=== PATIENT | male | born 1990 | race African-American/Black ===

== ENCOUNTER 2018-03-02 18:43 | Emergency (ER) | payer MEDICAID, OTHER ==
[~2018-03-02] VITALS: Ht 195.6 cm; Wt 91.8 kg
[2018-03-02] MEDS ORDERED: LORazepam 2 mg/ml vial IV ONE (18:55)
[2018-03-02 21:06] LABS: BASOPHILS # (AUTO) 0.1 X10'3 (0-0.2); BASOPHILS % (AUTO) 1.3 % (0-1); EOSINOPHILS % (AUTO) 0.4 % (0-6); HEMATOCRIT 41.3 % (42.0-52.0); HEMOGLOBIN 13.8 g/dl (14.0-17.9); LYMPHOCYTES # (AUTO) 1.7 X10'3 (1.1-4.8); LYMPHOCYTES % (AUTO) 21.5 % (21-51); MEAN CORPUSCULAR HEMOGLOBIN 28.9 PG (27.0-31.0); MEAN CORPUSCULAR HGB CONC 33.3 % (33.0-36.5); MEAN CORPUSCULAR VOLUME 86.6 FL (78-98); MONOCYTES # (AUTO) 0.4 X10'3 (0-0.9); MONOCYTES % (AUTO) 5.4 % (2-12); NEUTROPHILS # (AUTO) 5.7 X10'3 (1.8-7.7); NEUTROPHILS % (AUTO) 71.4 % (42-75); PLATELET COUNT 234 X10'3 (140-440); RED BLOOD COUNT 4.77 X10'6 (4.70-6.10); RED CELL DISTRIBUTION WIDTH 14.8 % (11.5-14.5)
--- NOTE | 2018-03-02 21:13 | NUR ---
PT HAS A MIRROR IN HIS HAND, THINKS ITS A PHONE AND TALKING TO PRESIDENT EZ, MAKING PLANS TO PLAY BASEBALL TOMORROW INSTEAD OF GOLF.
[2018-03-02 21:20] LABS: ALANINE AMINOTRANSFERASE 27 U/L (12-78); ALBUMIN 3.9 G/DL (3.4-5.0); ALBUMIN/GLOBULIN RATIO 0.9 (1.1-1.5); ALKALINE PHOSPHATASE 75 IU/L (46-116); ANION GAP 14 (8-16); ASPARTATE AMINO TRANSFERASE 25 U/L (10-37); BILIRUBIN,TOTAL 0.4 MG/DL (0.1-1.0); BLOOD UREA NITROGEN 7 MG/DL (7-18); BUN/CREATININE RATIO 6.8 (5.4-32.0); CALCIUM 9.2 MG/DL (8.5-10.1); CHLORIDE 102 MMOL/L (99-107); CREATININE 1.03 MG/DL (0.60-1.10); GLUCOSE 114 MG/DL (70-104); POTASSIUM 3.6 MMOL/L (3.5-5.1); SODIUM 140 MMOL/L (135-145); TOTAL CARBON DIOXIDE 24.4 MMOL/L (24-32); TOTAL PROTEIN 8.4 G/DL (6.4-8.2); eGFR 85 ML/MIN
[2018-03-02 21:29] LABS: ETHANOL < 0.010 GM/DL (0.0-0.010)
[2018-03-02 21:33] LABS: ACETAMINOPHEN < 2.0 UG/ML (10-30)
--- NOTE | 2018-03-02 21:41 | NUR ---
CALLED FOR TELEPSYCH CONSULT PT HAD A SAFETY PIN AND POKED IT THRU SKIN BETWEEN LEFT THUMB AND INDEX FINGER. CALLED IT A TATTOO. SAFETY PIN REMOVED. ALSO EARLIER HE HAD STAPLE AND SHOVING IT INTO BED OF FINGERNAIL AT END OF FINGER.
[2018-03-02] MEDS ORDERED: diphenhydrAMINE 50 mg/ml inj IM ONE ×2 (21:45→21:50)
[2018-03-02] MEDS ORDERED: LORazepam 2 mg/ml vial IM ONE ×2 (21:45→21:50)
[2018-03-02] MEDS ORDERED: haloperidol lactate 5mg/ml inj IM ONE ×2 (21:45→21:50)
--- NOTE | 2018-03-02 21:55 | NUR ---
PT APPARANTLY ATTEMPTING TO HANG SELF BY WRAPPING SHEET AROUND NECK. SECURITY CALLED TO BEDSIDE. PT MEDICATED FOR AGGITATION.
--- NOTE | 2018-03-02 22:34 | NUR ---
PT CHANGED INTO GREEN GOWN, HE IS BECOMING SLEEPY, SUSAN WELL. MOVED TO ER OF AND RESTING QUIETLY.
--- NOTE | 2018-03-03 05:48 | NUR ---
PT REFUSED VITALS
--- NOTE | 2018-03-03 07:48 | NUR ---
Pt. laying in front of desk in hallway sleeping.
--- NOTE | 2018-03-03 09:38 | NUR ---
Patient ate 100% of breakfast, then went back to sleep. Patient has not urinated this morning, awaiting U/A.
[2018-03-03] MEDS ORDERED: NO HOME MEDS (10:02)
[2018-03-03 11:36] LABS: CLARITY,URINE SLIGHTLY CLOUDY (Clear); COLOR,URINE YELLOW (Yellow); GLUCOSE, URINE NEGATIVE (Neg); KETONES,URINE NEGATIVE (Neg); LEUKOCYTE ESTERASE ,URINE NEGATIVE (Neg); NITRITES, URINE NEGATIVE (Neg); OCCULT BLOOD,URINE NEGATIVE (Neg); PH,URINE 6.5 (4.8-8.0); PROTEIN,URINE NEGATIVE (Neg)
[2018-03-03 11:43] LABS: UA COLLECTION TYPE NON-SPECIFIED
[2018-03-03 11:44] LABS: MUCUS STRANDS MANY /LPF (Neg); SQUAMOUS EPITHELIAL CELL,UR MODERATE /LPF (FEW)
[2018-03-03 11:45] LABS: BACTERIA,URINE 1+ /HPF (Neg); RBC,URINE 0-2 /HPF (0-2); TRANSITIONAL EPI CELLS,URINE FEW /HPF
[2018-03-03 11:48] LABS: URINE AMPHETAMINE SCREEN POSITIVE (Neg); URINE BARBITUATE SCREEN NEGATIVE (Neg); URINE BENZODIAZEPINES SCREEN NEGATIVE (Neg); URINE CANNABINOID SCREEN POSITIVE (Neg); URINE COCAINE SCREEN NEGATIVE (Neg); URINE METHADONE SCREEN NEGATIVE (Neg); URINE OPIATE SCREEN NEGATIVE (Neg); URINE PHENCYCLIDINE SCREEN NEGATIVE (Neg)
--- NOTE | 2018-03-03 12:07 | NUR ---
Patient awoke from sleep around 11:30. Patient was able to answer questions coherently. Patient verbalizes positive SI. Has had over 30 previous attempts, with 17 hospitalizations. Patient has not been on medications for the last 3 months and does not know dosages. [facility] here to evaluate patient.
--- NOTE | 2018-03-03 13:56 | NUR ---
[facility] called back and stated they are going to recommend admitting patient. Report being faxed. Pt. sleeping.
[2018-03-03] MEDS ORDERED: QUET400T3 PO (14:41)
--- NOTE | 2018-03-03 15:26 | NUR ---
Patient is sleeping soundly in bed. [facility] was going to release patient, but at recommendation of [facility], Dr. Smart is keeping him on a [id number] and [facility] will be back tomorrow to re-evaluate.
--- NOTE | 2018-03-03 16:56 | NUR ---
Patient had EKG performed, read by Dr. Rea as NSR. Patient back to sleep.
[2018-03-03] MEDS ORDERED: quetiapine 100mg tablet PO SCH ×2 (17:00→18:00)
[2018-03-03] MEDS ORDERED: magnesium hydroxide 30ml (MOM) UD suspension PO ONE (17:50)
[2018-03-03] MEDS: docusate sod 100mg capsule PO SCH (19:26)
--- NOTE | 2018-03-03 19:27 | NUR ---
The patient presents as very sleeping after receiving PM dose of Seroquel. He ate dinner and immediately afterwards fell fast asleep and was arousable but then immediately went back to sleep and really had difficulty answering simple direct questions.
--- NOTE | 2018-03-03 20:42 | NUR ---
The patient appears to be asleep at this time
--- NOTE | 2018-03-03 21:50 | NUR ---
The patient appears to be asleep at this time
--- NOTE | 2018-03-03 23:45 | NUR ---
The patient appears to be asleep. Was up to use the bathroom briefly but now back in bed
--- NOTE | 2018-03-04 02:30 | NUR ---
The patient appears to be asleep at this time
--- NOTE | 2018-03-04 04:27 | NUR ---
The patient appears to be asleep throughout the night.
[2018-03-04 05:55] VITALS: BP 107/57
--- NOTE | 2018-03-04 06:40 | NUR ---
Patient sleeping on right side. No distress observed. Continue to monitor.
[2018-03-04] MEDS: QUEtiapine 25mg tablet PO SCH ×2 (08:26→08:58)
[2018-03-04] MEDS: docusate sod 100mg capsule PO SCH (08:26)
--- NOTE | 2018-03-04 09:04 | NUR ---
[facility], [place], evaluating patient.
[2018-03-04] MEDS ORDERED: quetiapine 100mg tablet PO SCH (21:00)
== END 2018-03-04 10:10 | disposition home or self-care (01) ==
LOC: ER 18:45
DX: F23 Brief psychotic disorder (principal); F41.9 Anxiety disorder, unspecified; F12.90 Cannabis use, unspecified, uncomplicated; R41.82 Altered mental status, unspecified
CPT/HCPCS: 36415; 80053; 80305; 80320; 80329; 81001; 84443; 85025; 96372; 96374; 99284; J1200; J1630; J2060